=== PATIENT | female | born 1950 | race Caucasian/White ===

== ENCOUNTER → 2016-08-23 | Outpatient (CLI) | payer SELFPAY ==
[~2016-08-23] MED LIST: LEVAQUIN DPS500 MG PO; METOPROLOL TART25 MG PO; PEPCID DPS20 MG PO; XARELTO15 MG PO
== END | disposition home or self-care (01) ==
LOC: RAD.S 08-16 08:40
DX: Z12.31 Encounter for screening mammogram for malignant neoplasm of breast (principal); R92.1 Mammographic calcification found on diagnostic imaging of breast